=== PATIENT | male | born 1985 | race Caucasian/White ===

== ENCOUNTER 2018-06-21 08:55 | Emergency (ER) | payer OTHER ==
[~2018-06-21] VITALS: Ht 180.3 cm; Wt 111.6 kg
[2018-06-21 08:59] VITALS: BP 162/79; Ht 180.3 cm; Wt 111.6 kg
== END 2018-06-21 10:19 | disposition home or self-care (01) ==
LOC: ED 08:55
DX: S46.912A Strain of unspecified muscle, fascia and tendon at shoulder and upper arm level, left arm, initial encounter (principal); Z88.0 Allergy status to penicillin; W22.8XXA Striking against or struck by other objects, initial encounter; Y93.89 Activity, other specified; Y92.89 Other specified places as the place of occurrence of the external cause; Y99.8 Other external cause status

== ENCOUNTER 2019-02-21 15:24 | Emergency (ER) | payer MEDICAID ==
[~2019-02-21] VITALS: Ht 180.3 cm; Wt 125.2 kg
[2019-02-21 15:48] VITALS: BP 125/80; Ht 180.3 cm; Wt 125.2 kg
== END 2019-02-21 18:10 | disposition home or self-care (01) ==
LOC: ED 15:24
DX: L02.31 Cutaneous abscess of buttock (principal); Z88.0 Allergy status to penicillin
CPT/HCPCS: J1885